=== PATIENT | female | born 1970 | race Caucasian/White ===

== ENCOUNTER 2022-10-28 08:09 | Day surgery (SDC) | payer OTHER ==
[2022-10-26 10:56] VITALS: BMI 28.3
[~2022-10-28 08:09] MED LIST: LACTATED RINGERS 1,000 ML IV SCH
[2022-10-28 08:33] VITALS: TEMP 97.7
[2022-10-28] MEDS ORDERED: PROPOFOL 10 MG/ML 20 ML VIAL IV ONE (09:26)
--- NOTE | 2022-10-28 09:41 | P.PCN ---
Date of Procedure: 10/28/22 Procedure(s) Performed: BRIEF HISTORY: Patient is a 52-year-old pleasant female scheduled for an elective colonoscopy as a part of surveillance of long-standing history of ulcerative colitis diagnosed in October. She was diagnosed with ulcerative colitis by Dr. Burns at [facility] in 2014. The patient was treated with Symphoni injections every 4 weeks and was in clinical remission. She discontinued it about 2 years ago was of insurance reasons. Lately she is been having 5-6 loose watery bowel movements with occasional blood in the stool. PROCEDURE PERFORMED: Colonoscopy random biopsies . PREOPERATIVE DIAGNOSIS: history of ulcerative colitis IV sedation per Anesthesia. PROCEDURE: After informed consent was obtained, the patient, was brought into the endoscopy unit. IV sedation was administered by Anesthesia under continuous monitoring. Digital rectal examination was normal. Initially the Olympus CF-160 flexible video colonoscope was then inserted in the rectum, gradually advanced into the cecum without any difficulty. Careful examination was performed as the scope was gradually being withdrawn. Ileocecal valve and the appendiceal orifice were visualized and appeared normal. Prep was excellent. terminal ileum was intubated and 20 cm visualized and appeared normal. Mucosa of the cecum, ascending colon, transverse colon, descending colon, sigmoid colon, and rectum appeared normal. random biopsies were done from rectum to cecum with every 10 cm into well. Scattered sigmoid diverticulosis seen. Retroflexion was performed in the rectum and no lesions were seen. The patient tolerated the procedure well. IMPRESSION: Normal-appearing colon from rectum to cecum with no evidence of active colitis or colorectal neoplasia . Scattered sigmoidal diverticula RECOMMENDATIONS: Findings of this examination were discussed with the patient as well as a family. She was advised to follow with the biopsy results. She'll be seen in office in 2-3 weeks..
[2022-10-28 10:00] VITALS: BP 121/81; PULSE 63; RESP 16
== END 2022-10-28 10:37 | disposition home or self-care (01) ==
LOC: ORWHC2ENDO 08:09
PROVIDERS: ATTEND Internal Medicine Gastroenterology
DX: K51.90 Ulcerative colitis, unspecified, without complications (principal); K57.30 Diverticulosis of large intestine without perforation or abscess without bleeding; Z79.899 Other long term (current) drug therapy
CPT/HCPCS: 81025; 88305; 45380; J2704